=== PATIENT | female | born 1975 | race American Indian/Alaskan Native ===

== ENCOUNTER 2018-02-08 20:21 | Emergency (ER) | payer SELFPAY ==
[2018-02-09] MEDS ORDERED: SUBLIMAZE IV ONE (00:56)
[2018-02-09] MEDS ORDERED: ZOFRAN IV ONE (00:56)
--- NOTE | 2018-02-09 01:04 | Emergency Department Report ---
HPI - General Chief Complaint: Abdominal Pain Time Seen by Provider: 02/09/18 00:44 - HPI HPI: Room 8 The patient is a 42-year-old female presenting with a chief complaint of abdominal pain. The patient states she is constant left flank pain since October 2017. The patient states she went to a clinic 01/26/2018 labs performed. The patient was given a referral for outpatient CT and GI follow-up however the patient has been unable to do so secondary to lack of insurance. The patient states her pain has become diffuse over the past 4-5 days but still greatest on the left side. Patient denies nausea vomiting or diarrhea, dysuria, hematuria either. Patient describes pain as a pressure in nature. The patient gives her pain a score of 7/10. Location: [See above] Duration: [See above] Quality: Pressure Severity: 7/10 Modifying factors: [see above] Context: [see above] Mode of transportation: [not driving] ED Past Medical Hx - Past Medical History Previous Medical History?: Yes Additional medical history: Anemia - Surgical History Past Surgical History?: No - Family History Family history: no significant - Social History Smoking Status: Never Smoker Substance Use Type: None (denies illicit drug use) - Medications Home Medications: Home Medications Medication Instructions Recorded Confirmed Last Taken Type traMADol [Ultram] 50 mg PO Q6HR PRN #20 tablet 02/09/18 Unknown Rx ED Review of Systems ROS: Stated complaint: STOMACH PAIN Other details as noted in HPI Constitutional: denies: fever Eyes: denies: eye pain ENT: denies: throat pain Respiratory: no symptoms reported Cardiovascular: denies: chest pain Endocrine: no symptoms reported Gastrointestinal: abdominal pain. denies: nausea, vomiting, diarrhea Genitourinary: denies: dysuria, hematuria Musculoskeletal: denies: back pain Neurological: denies: headache Physical Exam - Physical Exam Vital Signs: Vital Signs 02/08/18 02/09/18 20:38 00:27 Temperature 99 F 97.6 F Pulse Rate 90 85 Respiratory 16 14 Rate Blood Pressure 167/68 207/65 O2 Sat by Pulse 97 100 Oximetry Physical Exam: GENERAL: The patient is well-developed well-nourished female lying on stretcher not appearing to be in acute distress. [] HEENT: Normocephalic. Atraumatic. Extraocular motions are intact. Patient has moist mucous membranes. NECK: Supple. Trachea midline CHEST/LUNGS: Clear to auscultation. There is no respiratory distress noted. HEART/CARDIOVASCULAR: Regular. There is no tachycardia. There is no gallop rub or murmur. ABDOMEN: Abdomen is soft, diffusely tender to palpation but greatest in the epigastric region. There is no rebound or guarding. Patient has normal bowel sounds. There is no abdominal distention. SKIN: There is no rash. There is no edema. There is no diaphoresis. NEURO: The patient is awake, alert, and oriented. The patient is cooperative. The patient has normal speech MUSCULOSKELETAL: There is no CVA tenderness. There is no evidence of acute injury. ED Course Vital Signs 02/08/18 02/09/18 20:38 00:27 Temperature 99 F 97.6 F Pulse Rate 90 85 Respiratory 16 14 Rate Blood Pressure 167/68 207/65 O2 Sat by Pulse 97 100 Oximetry ED Medical Decision Making - Lab Data Result diagrams: 02/09/18 00:58 02/09/18 00:58 Laboratory Tests 02/09/18 02/09/18 02/09/18 00:58 00:58 00:58 WBC 10.2 RBC 4.42 Hgb 8.6 L Hct 28.1 L MCV 64 L MCH 20 L MCHC 31 RDW 23.4 H Plt Count 528 H Lymph % (Auto) 27.8 Kendall % (Auto) 5.0 Eos % (Auto) 1.6 Baso % (Auto) 0.3 Lymph # 2.8 Kendall # 0.5 Eos # 0.2 Baso # 0.0 Seg Neutrophils % 65.3 Seg Neutrophils # 6.7 Sodium 138 Potassium 4.0 Chloride 100.1 Carbon Dioxide 26 Anion Gap 16 BUN 12 Creatinine 0.6 L Estimated GFR > 60 BUN/Creatinine Ratio 20 Glucose 103 H Calcium 9.4 Total Bilirubin 0.20 AST 7 ALT 9 Alkaline Phosphatase 105 Total Protein 7.0 Albumin 3.6 L Albumin/Globulin Ratio 1.1 Amylase 28 Lipase 15 HCG, Qual Negative - Radiology Data Radiology results: report reviewed (CT abdomen and pelvis), image reviewed (CT abdomen and pelvis) [facility] [address] [place] [address] Cat Scan Report Signed Patient: MARTHA AGUAYO MR#: [id number] : 1975 Acct:[id number] Age/Sex: 42 / F ADM Date: 02/08/18 Loc: ED Attending Dr: Ordering Physician: SHAQ LOPEZ MD Date of Service: 02/09/18 Procedure(s): CT abdomen pelvis w con Accession Number(s): [id number] cc: SHAQ LOPEZ MD FINAL REPORT EXAM: CT ABDOMEN PELVIS W CON HISTORY: diffuse abdominal pain greatest in the epigastric COMPARISON: None available. TECHNIQUE: Contiguous axial images were obtained. Additional sagittal and coronal reformatted images were obtained. Administration of IV contrast given per institution protocol. Images submitted for interpretation. 100 cc Omnipaque 350. FINDINGS: Mild linear atelectasis at the right lung base. No calcified gallstones or biliary dilatation. Homogeneous enhancement of the liver, spleen, pancreas and adrenal glands. No peripancreatic stranding or fluid. No solid renal lesion. No hydronephrosis. Aorta and IVC normal in caliber. Urinary bladder is unremarkable. IUD is low lying along endocervical canal and lower uterine segment region of the uterus. Ovaries are grossly unremarkable. No free fluid or lymphadenopathy. Stomach is partially decompressed. No adjacent fat stranding or fluid. No focal asymmetric wall thickening of the stomach. The appendix is normal in caliber measuring 5 millimeters in diameter. Large and small bowel loops normal in caliber. No focal inflammatory changes the bowel. Tiny umbilical hernia containing fat only. Mild degenerative changes of the lumbar spine. Bony pelvis is grossly intact. IMPRESSION: No focal inflammatory changes of the abdomen and pelvis. IUD is low lying centered along the endocervical canal and lower uterus segment region of the uterus. Uterus and ovaries are otherwise unremarkable. Transcribed By: LMA Dictated By: DANIEL MANZO MD Electronically Authenticated By: DANIEL MANZO MD Signed Date/Time: 02/09/18233 DD/ 3 TD/TT: 02/09/18233 - Differential Diagnosis gastritis, Crohn's disease, renal colic, diverticulitis Critical care attestation.: If time is entered above; I have spent that time in minutes in the direct care of this critically ill patient, excluding procedure time. ED Disposition Clinical Impression: Abdominal pain Disposition: DC-01 TO HOME OR SELFCARE Is pt being admited?: No Does the pt Need Aspirin: No Condition: Stable Instructions: Abdominal Pain (ED) Additional Instructions: Return to the emergency department immediately should you develop worsening symptoms, fever, inability to tolerate food or liquid or any other concerns. Prescriptions: traMADol [Ultram] 50 mg PO Q6HR PRN #20 tablet PRN Reason: Pain Referrals: PRIMARY CARE, [Primary Care Provider] - 3-5 Days [facility] [Outside] - 3-5 Days ADY STONER MD [Staff Physician] - 3-5 Days (Dr. Stoner is a mail reader. Please follow with him for further evaluation) Time of Disposition: 02:53
[2018-02-09 01:16] LABS: Basophils % (Auto) 0.3 % (0.0-1.8); Eosinophils # (Auto) 0.2 K/mm3 (0.0-0.4); Eosinophils % (Auto) 1.6 % (0.0-4.3); Hematocrit 28.1 % (30.3-42.9); Hemoglobin 8.6 gm/dl (10.1-14.3); Lymphocytes # (Auto) 2.8 K/mm3 (1.2-5.4); Lymphocytes % (Auto) 27.8 % (13.4-35.0); Mean Corpuscular HGB Conc 31 % (30-34); Monocytes # (Auto) 0.5 K/mm3 (0.0-0.8); Platelet Count 528 K/mm3 (140-440); Red Blood Count 4.42 M/mm3 (3.65-5.03)
[2018-02-09 01:26] LABS: Mean Corpuscular Hemoglobin 20 pg (28-32); Mean Corpuscular Volume 64 fl (79-97); Red Cell Distribution Width 23.4 % (13.2-15.2)
[2018-02-09 01:42] LABS: Alanine Aminotransferase 9 units/L (7-56); Albumin 3.6 g/dL (3.9-5); BUN/Creatinine Ratio 20; Blood Urea Nitrogen 12 mg/dL (7-17); Calcium 9.4 mg/dL (8.4-10.2); Hemolysis Index 0; Lipase 15 units/L (13-60)
--- NOTE | 2018-02-09 02:34 | Cat Scan Report ---
FINAL REPORT EXAM: CT ABDOMEN PELVIS W CON HISTORY: diffuse abdominal pain greatest in the epigastric COMPARISON: None available. TECHNIQUE: Contiguous axial images were obtained. Additional sagittal and coronal reformatted images were obtained. Administration of IV contrast given per institution protocol. Images submitted for interpretation. 100 cc Omnipaque 350. FINDINGS: Mild linear atelectasis at the right lung base. No calcified gallstones or biliary dilatation. Homogeneous enhancement of the liver, spleen, pancreas and adrenal glands. No peripancreatic stranding or fluid. No solid renal lesion. No hydronephrosis. Aorta and IVC normal in caliber. Urinary bladder is unremarkable. IUD is low lying along endocervical canal and lower uterine segment region of the uterus. Ovaries are grossly unremarkable. No free fluid or lymphadenopathy. Stomach is partially decompressed. No adjacent fat stranding or fluid. No focal asymmetric wall thickening of the stomach. The appendix is normal in caliber measuring 5 millimeters in diameter. Large and small bowel loops normal in caliber. No focal inflammatory changes the bowel. Tiny umbilical hernia containing fat only. Mild degenerative changes of the lumbar spine. Bony pelvis is grossly intact. IMPRESSION: No focal inflammatory changes of the abdomen and pelvis. IUD is low lying centered along the endocervical canal and lower uterus segment region of the uterus. Uterus and ovaries are otherwise unremarkable.
[2018-02-09 03:08] VITALS: BP 160/82
== END 2018-02-09 03:25 | disposition home or self-care (01) ==
LOC: ED 20:21
DX: R10.84 Generalized abdominal pain (principal)
CPT/HCPCS: 36415; 74177; 80053; 82150; 83690; 84703; 85025; 96374; 96375; 99284; J2405; J3010; Q9967